=== PATIENT | female | born 1935 | race Caucasian/White ===

== ENCOUNTER 2017-10-02 14:29 | Inpatient (IN) | payer MEDICARE ==
[~2017-10-02] VITALS: Ht 172.7 cm; Wt 90.1 kg
[~2017-10-02 14:29] MED LIST: Aleve; CALCIUM; INDA2.5T PO; LISI40TA PO; VITAMIN; fishoil; hydrocodone PO; levothyroxine PO
[2017-10-02] MEDS ORDERED: POTASSIUM CHLORIDE 20 MEQ in SODIUM CHLORIDE 0.9% 1,000 ML IV SCH (15:10)
[2017-10-02] MEDS ORDERED: LORazepam 2 MG/ML, 1ML ONE (15:13)
[2017-10-02] MEDS ORDERED: ONDANSETRON 2MG/ML, 2ML IVPush PRN (15:30)
[2017-10-02] MEDS ORDERED: SENNA/DOCUSATE TABLET PO PRN (15:30)
[2017-10-02] MEDS ORDERED: HYDROcodone/APAP 5/325 TABLET PO PRN (15:30)
[2017-10-02] MEDS ORDERED: PROMETHAZINE 25 MG/ML, 1ML IM PRN (15:30)
[2017-10-02] MEDS ORDERED: ONDANSETRON 4 MG TABLET PO PRN (15:30)
[2017-10-02] MEDS ORDERED: morphine SULFATE 10 MG/ML, 1ML IVPush PRN (15:30)
[2017-10-02] MEDS ORDERED: POLYETHYLENE GLYCOL 17 GM PACKET PO PRN (15:30)
[2017-10-02] MEDS ORDERED: LORazepam 2 MG/ML, 1ML IVPush ONE (15:30)
[2017-10-02 17:55] VITALS: BP 153/89
[2017-10-02 20:44] VITALS: BP 139/71
[2017-10-02] MEDS: ATORVASTATIN 40 MG TABLET PO SCH (21:00)
[2017-10-02] MEDS: DOCUSATE 100 MG CAPSULE PO SCH (21:00)
[2017-10-02 22:47] VITALS: BP 132/67
[2017-10-02 23:57] VITALS: BP 144/72
[2017-10-03 02:06] VITALS: BP 161/80
[2017-10-03 05:27] LABS: CHOL/HDL RATIO 3.7
[2017-10-03] MEDS: LEVOTHYROXINE 88 MCG TABLET PO SCH (06:00)
[2017-10-03 06:36] VITALS: BP 162/83
[2017-10-03] MEDS: ASPIRIN 81 MG TABLET CHEW PO/NG SCH (09:00)
[2017-10-03] MEDS: DOCUSATE 100 MG CAPSULE PO SCH ×2 (09:00→21:00)
[2017-10-03] MEDS: LISINOPRIL 20 MG TABLET PO SCH (09:00)
[2017-10-03] MEDS: INDAPAMIDE 2.5 MG TABLET PO SCH (09:00)
[2017-10-03 09:30] LABS: CHLORIDE 109 mmol/L (98-107)
[2017-10-03 09:39] LABS: ALANINE AMINOTRANSFERASE 22 U/L (12-78); ALBUMIN 3.5 g/dL (3.4-5.0); ALKALINE PHOSPHATASE 81 U/L (45-117); ANION GAP 12 mmol/L (5-15); BILIRUBIN,TOTAL 0.7 mg/dL (0.2-1.0); CALCIUM 9.1 mg/dL (8.5-10.1); CREATININE 0.99 mg/dL (0.55-1.02); FREE T4 (FREE THYROXINE) 1.32 ng/dL (0.76-1.46); THYROID STIMULATING HORMONE 0.636 mIU/L (0.358-3.740)
[2017-10-03] MEDS: D5%-0.45NACL+KCL 20MEQ 1,000 ML IV SCH (10:00)
[2017-10-03 10:31] VITALS: BP 150/93
[2017-10-03 12:02] LABS: BASOPHILS # (AUTO) 0.05 x10^3/uL (0-0.1); BASOPHILS % (AUTO) 0 % (0-1); EOSINOPHILS # (AUTO) 0.06 x10^3/uL (0-0.4); EOSINOPHILS % (AUTO) 0 % (1-7); LYMPHOCYTES # (AUTO) 1.47 x10^3/uL (1-3.4); LYMPHOCYTES % (AUTO) 10 % (22-44); MD NO; MEAN CORPUSCULAR HEMOGLOBIN 30.8 pg (27.0-34.8); MEAN CORPUSCULAR HGB CONC 33.6 g/dL (32.4-35.8); MEAN CORPUSCULAR VOLUME 91.6 fL (80-100); MEAN PLATELET VOLUME 7.8 fL (7.4-10.4); MONOCYTES # (AUTO) 1.06 x10^3/uL (0.2-0.8); MONOCYTES % (AUTO) 7 % (2-9); NEUTROPHILS # (AUTO) 11.75 x10^3/uL (1.8-6.8); NEUTROPHILS % (AUTO) 82 % (42-75); PLATELET COUNT 247 x10^3/uL (130-400); RED BLOOD COUNT 4.44 x10^6/uL (3.82-5.3); RED CELL DISTRIBUTION WIDTH 13.1 % (9.6-15.2)
[2017-10-03 12:15] VITALS: BP 160/83
[2017-10-03 20:15] VITALS: BP 191/91
[2017-10-03] MEDS: ATORVASTATIN 40 MG TABLET PO SCH (21:00)
[2017-10-03 22:09] VITALS: BP 153/82
[2017-10-03 22:34] LABS: MICROSCOPIC INDICATED
[2017-10-04 02:10] VITALS: BP 182/82
[2017-10-04] MEDS: D5%-0.45NACL+KCL 20MEQ 1,000 ML IV SCH (02:16)
[2017-10-04 02:21] VITALS: BP 157/83
[2017-10-04 02:39] VITALS: BP 141/83
[2017-10-04 05:39] LABS: ALBUMIN 3.3 g/dL (3.4-5.0); CALCIUM 8.9 mg/dL (8.5-10.1); CHLORIDE 105 mmol/L (98-107)
[2017-10-04 05:40] LABS: BASOPHILS # (AUTO) 0.03 x10^3/uL (0-0.1); BASOPHILS % (AUTO) 0 % (0-1); EOSINOPHILS # (AUTO) 0.15 x10^3/uL (0-0.4); EOSINOPHILS % (AUTO) 1 % (1-7); LYMPHOCYTES # (AUTO) 1.73 x10^3/uL (1-3.4); LYMPHOCYTES % (AUTO) 12 % (22-44); MD NO; MEAN CORPUSCULAR HEMOGLOBIN 31.1 pg (27.0-34.8); MEAN CORPUSCULAR HGB CONC 33.8 g/dL (32.4-35.8); MEAN CORPUSCULAR VOLUME 92.1 fL (80-100); MEAN PLATELET VOLUME 8.1 fL (7.4-10.4); MONOCYTES # (AUTO) 1.29 x10^3/uL (0.2-0.8); MONOCYTES % (AUTO) 9 % (2-9); NEUTROPHILS # (AUTO) 10.71 x10^3/uL (1.8-6.8); NEUTROPHILS % (AUTO) 77 % (42-75); PLATELET COUNT 234 x10^3/uL (130-400); RED CELL DISTRIBUTION WIDTH 13.4 % (9.6-15.2)
[2017-10-04 05:44] LABS: ALANINE AMINOTRANSFERASE 22 U/L (12-78); ALKALINE PHOSPHATASE 82 U/L (45-117); ANION GAP 6 mmol/L (5-15); BILIRUBIN,TOTAL 0.9 mg/dL (0.2-1.0); CREATININE 0.78 mg/dL (0.55-1.02); TOTAL PROTEIN 6.9 g/dL (6.4-8.2)
[2017-10-04] MEDS: LEVOTHYROXINE 88 MCG TABLET PO SCH (06:00)
[2017-10-04 07:00] VITALS: BP 179/91
[2017-10-04] MEDS ORDERED: CEFTRIAXONE PMX 2GM/50ML 50 ML IV SCH (07:30)
[2017-10-04] MEDS ORDERED: hydrALAzine 20 MG/ML, 1ML IV PRN (08:00)
[2017-10-04] MEDS: TAMSULOSIN 0.4 MG CAP.ER.24H PO SCH (09:00)
[2017-10-04] MEDS: DOCUSATE 50 MG/5 ML, 10ML UDC PO SCH ×2 (09:05→20:14)
[2017-10-04] MEDS: INDAPAMIDE 2.5 MG TABLET PO SCH (09:06)
[2017-10-04] MEDS: ASPIRIN 81 MG TABLET CHEW PO/NG SCH (09:06)
[2017-10-04] MEDS: LISINOPRIL 20 MG TABLET PO SCH (09:06)
[2017-10-04 13:52] VITALS: BP 167/90
[2017-10-04 19:00] VITALS: BP 175/95
[2017-10-04] MEDS: ACETAMINOPHEN 650 MG/20.3 ML UDC PO PRN (20:14)
[2017-10-04] MEDS: ATORVASTATIN 40 MG TABLET PO SCH (20:14)
[2017-10-05 02:00] VITALS: BP 166/92
[2017-10-05 04:05] LABS: BASOPHILS # (AUTO) 0.11 x10^3/uL (0-0.1); BASOPHILS % (AUTO) 1 % (0-1); EOSINOPHILS # (AUTO) 0.24 x10^3/uL (0-0.4); EOSINOPHILS % (AUTO) 2 % (1-7); LYMPHOCYTES # (AUTO) 1.46 x10^3/uL (1-3.4); LYMPHOCYTES % (AUTO) 9 % (22-44); MD NO; MEAN CORPUSCULAR HGB CONC 33.6 g/dL (32.4-35.8); MEAN CORPUSCULAR VOLUME 92.3 fL (80-100); MEAN PLATELET VOLUME 8.2 fL (7.4-10.4); MONOCYTES # (AUTO) 1.19 x10^3/uL (0.2-0.8); MONOCYTES % (AUTO) 7 % (2-9); NEUTROPHILS # (AUTO) 13.12 x10^3/uL (1.8-6.8); NEUTROPHILS % (AUTO) 81 % (42-75); PLATELET COUNT 252 x10^3/uL (130-400); RED BLOOD COUNT 4.79 x10^6/uL (3.82-5.3); RED CELL DISTRIBUTION WIDTH 13.1 % (9.6-15.2)
[2017-10-05 04:14] LABS: ALBUMIN 3.2 g/dL (3.4-5.0); ANION GAP 6 mmol/L (5-15); CALCIUM 9.1 mg/dL (8.5-10.1); CHLORIDE 104 mmol/L (98-107); CREATININE 0.72 mg/dL (0.55-1.02)
[2017-10-05] MEDS: LEVOTHYROXINE 88 MCG TABLET PO SCH (05:49)
[2017-10-05 07:08] VITALS: BP 169/80
[2017-10-05] MEDS: TAMSULOSIN 0.4 MG CAP.ER.24H PO SCH (09:00)
[2017-10-05] MEDS: ASPIRIN 81 MG TABLET CHEW PO/NG SCH (09:50)
[2017-10-05] MEDS: DOCUSATE 50 MG/5 ML, 10ML UDC PO SCH ×2 (09:50→20:34)
[2017-10-05] MEDS: CEFTRIAXONE 2 GM in DEXTROSE 5% 50 ML IV SCH (09:50)
[2017-10-05] MEDS: LISINOPRIL 20 MG TABLET PO SCH (09:51)
[2017-10-05] MEDS: INDAPAMIDE 2.5 MG TABLET PO SCH (09:51)
[2017-10-05] MEDS: ENOXAPARIN 40 MG/0.4 ML SQ SCH (09:51)
[2017-10-05 13:53] VITALS: BP 167/85
[2017-10-05 19:55] VITALS: BP 161/84
[2017-10-05] MEDS: ATORVASTATIN 40 MG TABLET PO SCH (20:34)
[2017-10-06 00:31] VITALS: BP 156/87
[2017-10-06 05:17] LABS: MEAN CORPUSCULAR HEMOGLOBIN 31.5 pg (27.0-34.8); MEAN CORPUSCULAR HGB CONC 33.8 g/dL (32.4-35.8); MEAN CORPUSCULAR VOLUME 93.2 fL (80-100); MEAN PLATELET VOLUME 8.3 fL (7.4-10.4); PLATELET COUNT 279 x10^3/uL (130-400); RED BLOOD COUNT 4.95 x10^6/uL (3.82-5.3); RED CELL DISTRIBUTION WIDTH 12.9 % (9.6-15.2)
[2017-10-06 05:28] LABS: CALCIUM 9.2 mg/dL (8.5-10.1)
[2017-10-06 05:29] LABS: ANION GAP 9 mmol/L (5-15); CHLORIDE 103 mmol/L (98-107); CREATININE 0.78 mg/dL (0.55-1.02)
[2017-10-06] MEDS: LEVOTHYROXINE 88 MCG TABLET PO SCH (05:48)
[2017-10-06 06:02] LABS: BASOPHILS # (AUTO) 0.05 x10^3/uL (0-0.1); BASOPHILS % (AUTO) 0 % (0-1); EOSINOPHILS # (AUTO) 0.08 x10^3/uL (0-0.4); EOSINOPHILS % (AUTO) 1 % (1-7); LYMPHOCYTES # (AUTO) 1.45 x10^3/uL (1-3.4); LYMPHOCYTES % (AUTO) 9 % (22-44); MD SCAN; MONOCYTES # (AUTO) 1.57 x10^3/uL (0.2-0.8); MONOCYTES % (AUTO) 10 % (2-9); NEUTROPHILS # (AUTO) 13.25 x10^3/uL (1.8-6.8); NEUTROPHILS % (AUTO) 81 % (42-75)
[2017-10-06 07:33] VITALS: BP 166/82
[2017-10-06] MEDS: TAMSULOSIN 0.4 MG CAP.ER.24H PO SCH (08:27)
[2017-10-06] MEDS: ASPIRIN 81 MG TABLET CHEW PO/NG SCH (09:17)
[2017-10-06] MEDS: LISINOPRIL 20 MG TABLET PO SCH (09:17)
[2017-10-06] MEDS: ACETAMINOPHEN 650 MG/20.3 ML UDC PO PRN ×2 (09:17→18:07)
[2017-10-06] MEDS: CEFTRIAXONE 2 GM in DEXTROSE 5% 50 ML IV SCH (09:17)
[2017-10-06] MEDS: DOCUSATE 50 MG/5 ML, 10ML UDC PO SCH ×2 (09:17→20:27)
[2017-10-06] MEDS: INDAPAMIDE 2.5 MG TABLET PO SCH (09:17)
[2017-10-06] MEDS: ENOXAPARIN 40 MG/0.4 ML SQ SCH (09:18)
[2017-10-06] MEDS: AMPICILLIN/SULBACTAM 3 GM in SODIUM CHLORIDE 0.9% 100 ML IV SCH ×2 (12:57→18:07)
[2017-10-06 15:04] VITALS: BP 136/82
[2017-10-06 20:21] VITALS: BP 112/68
[2017-10-06] MEDS: ATORVASTATIN 40 MG TABLET PO SCH (20:27)
[2017-10-07] MEDS: AMPICILLIN/SULBACTAM 3 GM in SODIUM CHLORIDE 0.9% 100 ML IV SCH ×4 (00:06→17:52)
[2017-10-07 02:55] VITALS: BP 129/66
[2017-10-07] MEDS: LEVOTHYROXINE 88 MCG TABLET PO SCH (05:15)
[2017-10-07 05:49] LABS: MEAN CORPUSCULAR HGB CONC 33.2 g/dL (32.4-35.8); MEAN CORPUSCULAR VOLUME 93.4 fL (80-100); PLATELET COUNT 264 x10^3/uL (130-400); RED BLOOD COUNT 5.05 x10^6/uL (3.82-5.3); RED CELL DISTRIBUTION WIDTH 13.8 % (9.6-15.2)
[2017-10-07 06:08] LABS: ANION GAP 10 mmol/L (5-15); CALCIUM 9.3 mg/dL (8.5-10.1); CHLORIDE 103 mmol/L (98-107); CREATININE 0.93 mg/dL (0.55-1.02)
[2017-10-07 06:30] LABS: BASOPHILS # (AUTO) 0.05 x10^3/uL (0-0.1); BASOPHILS % (AUTO) 0 % (0-1); EOSINOPHILS # (AUTO) 0.43 x10^3/uL (0-0.4); EOSINOPHILS % (AUTO) 3 % (1-7); LYMPHOCYTES # (AUTO) 1.62 x10^3/uL (1-3.4); LYMPHOCYTES % (AUTO) 11 % (22-44); MD SCAN; MONOCYTES # (AUTO) 1.77 x10^3/uL (0.2-0.8); MONOCYTES % (AUTO) 12 % (2-9); NEUTROPHILS # (AUTO) 11.24 x10^3/uL (1.8-6.8); NEUTROPHILS % (AUTO) 74 % (42-75)
[2017-10-07 07:46] VITALS: BP 142/82
[2017-10-07] MEDS: LISINOPRIL 20 MG TABLET PO SCH (08:48)
[2017-10-07] MEDS: ENOXAPARIN 40 MG/0.4 ML SQ SCH (08:48)
[2017-10-07] MEDS: TAMSULOSIN 0.4 MG CAP.ER.24H PO SCH (08:49)
[2017-10-07] MEDS: DOCUSATE 50 MG/5 ML, 10ML UDC PO SCH ×2 (08:49→21:00)
[2017-10-07] MEDS: ASPIRIN 81 MG TABLET CHEW PO/NG SCH (08:49)
[2017-10-07] MEDS: INDAPAMIDE 2.5 MG TABLET PO SCH (08:49)
[2017-10-07] MEDS ORDERED: POTASSIUM CHLORIDE 20 MEQ TAB.ER.PRT PO ONE ×2 (09:00→11:00)
[2017-10-07 13:00] VITALS: BP 134/72
[2017-10-07] MEDS ORDERED: GADOBUTROL 10 MMOL/10 ML PFS ONE (15:09)
[2017-10-07 20:24] VITALS: BP 131/85
[2017-10-07] MEDS: ATORVASTATIN 40 MG TABLET PO SCH (21:00)
[2017-10-08] MEDS: AMPICILLIN/SULBACTAM 3 GM in SODIUM CHLORIDE 0.9% 100 ML IV SCH ×4 (00:07→17:55)
[2017-10-08 01:45] VITALS: BP 143/80
[2017-10-08 05:18] LABS: MEAN CORPUSCULAR HEMOGLOBIN 30.8 pg (27.0-34.8); MEAN CORPUSCULAR HGB CONC 32.8 g/dL (32.4-35.8); MEAN CORPUSCULAR VOLUME 93.9 fL (80-100); MEAN PLATELET VOLUME 7.6 fL (7.4-10.4); PLATELET COUNT 304 x10^3/uL (130-400); RED CELL DISTRIBUTION WIDTH 13.6 % (9.6-15.2)
[2017-10-08 05:29] LABS: ALBUMIN 2.8 g/dL (3.4-5.0); ANION GAP 9 mmol/L (5-15); CALCIUM 9.1 mg/dL (8.5-10.1); CHLORIDE 110 mmol/L (98-107); CREATININE 0.76 mg/dL (0.55-1.02)
[2017-10-08] MEDS: LEVOTHYROXINE 88 MCG TABLET PO SCH (05:32)
[2017-10-08 05:54] LABS: BASOPHILS % (AUTO) 1 % (0-1); EOSINOPHILS # (AUTO) 0.39 x10^3/uL (0-0.4); EOSINOPHILS % (AUTO) 3 % (1-7); LYMPHOCYTES # (AUTO) 1.34 x10^3/uL (1-3.4); LYMPHOCYTES % (AUTO) 8 % (22-44); MD SCAN; MONOCYTES # (AUTO) 1.67 x10^3/uL (0.2-0.8); MONOCYTES % (AUTO) 11 % (2-9); NEUTROPHILS % (AUTO) 78 % (42-75)
[2017-10-08 07:45] VITALS: BP 144/83
[2017-10-08] MEDS: DOCUSATE 50 MG/5 ML, 10ML UDC PO SCH ×2 (09:00→20:32)
[2017-10-08] MEDS: TAMSULOSIN 0.4 MG CAP.ER.24H PO SCH ×2 (09:00→12:08)
[2017-10-08] MEDS: INDAPAMIDE 2.5 MG TABLET PO SCH (09:09)
[2017-10-08] MEDS: ENOXAPARIN 40 MG/0.4 ML SQ SCH (09:09)
[2017-10-08] MEDS: LISINOPRIL 20 MG TABLET PO SCH (09:10)
[2017-10-08] MEDS: ASPIRIN 81 MG TABLET CHEW PO/NG SCH (09:10)
[2017-10-08] MEDS: CLOPIDOGREL 75 MG TABLET PO SCH (12:08)
[2017-10-08 12:36] VITALS: BP 135/77
[2017-10-08 19:53] VITALS: BP 142/64
[2017-10-08] MEDS: ATORVASTATIN 40 MG TABLET PO SCH (20:32)
[2017-10-09] MEDS: AMPICILLIN/SULBACTAM 3 GM in SODIUM CHLORIDE 0.9% 100 ML IV SCH ×3 (01:26→14:11)
[2017-10-09 02:10] VITALS: BP 141/57
[2017-10-09] MEDS: LEVOTHYROXINE 88 MCG TABLET PO SCH (06:24)
[2017-10-09 07:37] VITALS: BP 125/67
[2017-10-09 08:56] LABS: MEAN CORPUSCULAR HEMOGLOBIN 30.5 pg (27.0-34.8); MEAN CORPUSCULAR HGB CONC 33.1 g/dL (32.4-35.8); MEAN CORPUSCULAR VOLUME 91.9 fL (80-100); MEAN PLATELET VOLUME 7.4 fL (7.4-10.4); PLATELET COUNT 305 x10^3/uL (130-400); RED BLOOD COUNT 4.22 x10^6/uL (3.82-5.3)
[2017-10-09] MEDS: LISINOPRIL 20 MG TABLET PO SCH (09:00)
[2017-10-09] MEDS ORDERED: ASPIRIN 81 MG TABLET CHEW PO SCH (09:00)
[2017-10-09 09:06] LABS: ALBUMIN 2.6 g/dL (3.4-5.0); ANION GAP 8 mmol/L (5-15); CALCIUM 8.8 mg/dL (8.5-10.1); CHLORIDE 107 mmol/L (98-107); CREATININE 0.85 mg/dL (0.55-1.02)
[2017-10-09] MEDS ORDERED: LISINOPRIL 10 MG TABLET ONE (09:20)
[2017-10-09] MEDS: TAMSULOSIN 0.4 MG CAP.ER.24H PO SCH (09:25)
[2017-10-09] MEDS: DOCUSATE 50 MG/5 ML, 10ML UDC PO SCH (09:25)
[2017-10-09] MEDS: ENOXAPARIN 40 MG/0.4 ML SQ SCH (09:25)
[2017-10-09] MEDS: INDAPAMIDE 2.5 MG TABLET PO SCH (09:26)
[2017-10-09] MEDS: CLOPIDOGREL 75 MG TABLET PO SCH (09:26)
[2017-10-09 09:42] LABS: BASOPHILS # (AUTO) 0.05 x10^3/uL (0-0.1); BASOPHILS % (AUTO) 0 % (0-1); EOSINOPHILS # (AUTO) 0.34 x10^3/uL (0-0.4); EOSINOPHILS % (AUTO) 2 % (1-7); LYMPHOCYTES # (AUTO) 1.43 x10^3/uL (1-3.4); LYMPHOCYTES % (AUTO) 10 % (22-44); MD SCAN; MONOCYTES % (AUTO) 11 % (2-9); NEUTROPHILS % (AUTO) 76 % (42-75)
[2017-10-09] MEDS ORDERED: TAMS-11 PO (11:01)
[2017-10-09] MEDS ORDERED: ASPI-515 PO (11:01)
[2017-10-09] MEDS ORDERED: LISI-170 PO (11:01)
[2017-10-09] MEDS ORDERED: ATOR40TA78 PO (11:01)
[2017-10-09] MEDS ORDERED: CLOP75TA PO (11:01)
[2017-10-09] MEDS ORDERED: CEFD300C37 PO (11:17)
[2017-10-09 13:44] VITALS: BP 133/77
[2017-10-10] MEDS ORDERED: LISINOPRIL 20 MG TABLET PO SCH (09:00)
== END 2017-10-09 16:15 | DRG 65 ==
LOC: SUATTDRO 14:49 → ED 15:09 → EDIP 15:10 → ED 15:52 → 4WST 16:55 → 4EST 10-04 16:53
PROVIDERS: ADMIT Family Medicine; ATTEND Family Medicine
PROC: 0T9B70Z Drainage of Bladder with Drainage Device, Via Natural or Artificial Opening (ICD-10-PCS; principal; 2017-10-03)
DX: I63.511 Cerebral infarction due to unspecified occlusion or stenosis of right middle cerebral artery (principal); I67.4 Hypertensive encephalopathy; N39.0 Urinary tract infection, site not specified; W18.30XA Fall on same level, unspecified, initial encounter; R29.810 Facial weakness; I10 Essential (primary) hypertension; E89.0 Postprocedural hypothyroidism; R13.10 Dysphagia, unspecified; Y93.89 Activity, other specified; Y92.89 Other specified places as the place of occurrence of the external cause; Y99.8 Other external cause status; R27.0 Ataxia, unspecified
CPT/HCPCS: 36415; 70450; 70544; 70551; 70553; 71045; 80048; 80053; 80061; 81001; 82040; 82962; 83036; 83735; 84100; 84439; 84443; 85025; 87040; 87077; 87086; 87186; 93005; 93306; 93880; 96374; A9585; J0295; J0696; J1650; J3480; 92523-GN; J2060; J7030